=== PATIENT | female | born 1995 | race Caucasian/White ===

== ENCOUNTER 2020-05-17 12:24 | Observation (INO) ==
[2020-05-16 15:09] LABS: Basophils % 0.4 %; Eosinophils % 0.3 %; Hematocrit 33.6 % (35.3-44.9); Hemoglobin 10.9 g/dL (11.5-15.4); Immature Granulocytes % 1.1 % (0-4); Lymphocytes # 1.6 K/mcL (0.6-4.6); Lymphocytes % 16.8 %; Mean Corpuscular HGB Conc 32.4 g/dL (31.6-35.5); Mean Corpuscular Hemoglobin 29.1 pg (28.0-33.3); Mean Corpuscular Volume 89.6 fL (83.0-100.0); Mean Platelet Volume 10.3 fL (9.4-12.4); Monocytes # 0.6 K/mcL (0.0-1.3); Monocytes % 5.8 %; Neutrophils # 7.2 K/mcL (1.6-8.9); Platelet Count 267 K/mcL (140-400); Red Blood Count 3.75 M/mcL (3.82-4.97); Red Cell Distribution Width 13.8 % (11.5-14.5); Segmented Neutrophils % 75.6 %; White Blood Count 9.5 K/mcL (4.3-11.1)
[2020-05-16 15:16] LABS: Bacteria,Urine Few per hpf (None-Few); Bilirubin,Urine Negative (Negative); Blood,Urine Negative (Negative); Clarity,Urine Turbid (Clear); Color,Urine Yellow (Yellow); Glucose,Urine (UA) Normal (Normal); Ketones,Urine Negative (Negative); Leukocyte Esterase,Urine Large (Negative); Mucus,Urine Few per lpf (None-Few); Nitrite,Urine Negative (Negative); Protein,Urine 30 mg/dL (Neg-Trace); Specific Gravity,Urine 1.016 (1.010-1.025); Squamous Epithelial Cell,Urine Many per hpf (None-Few); Urobilinogen,Urine Normal (Normal); WBC,Urine 15-30 per hpf (0-3)
[2020-05-16 15:39] LABS: Alanine Aminotransferase 26 Units/L (7-52); Albumin 3.2 g/dL (3.5-5.7); Alkaline Phosphatase 106 Units/L (34-104); Aspartate Amino Transferase 21 Units/L (13-39); BUN/Creatinine Ratio 9 (6-26); Bilirubin,Indirect 0.3 mg/dL (0.0-1.0); Bilirubin,Total 0.3 mg/dL (0.3-1.0); Blood Urea Nitrogen 5 mg/dL (6-20); Calcium 8.5 mg/dL (8.6-10.3); Carbon Dioxide 19 mEq/L (23-29); Chloride 105 mEq/L (98-107); Globulin 3.1 g/dL (2.4-3.5); Glucose 80 mg/dL (70-105); Osmolality,Calculated 274 (280-300); Potassium 3.9 mEq/L (3.5-5.1); Sodium 134 mEq/L (136-145); Total Protein 6.3 g/dL (6.4-8.9); eGFR For African Americans > 60 (> 60); eGFR For Non-African Americans > 60 (> 60)
[~2020-05-17 12:24] MED LIST: Acetaminophen 325 MG TABLET PO ONE; Acetaminophen/Butalbital/CaffeineTABLET PO PRN; Magnesium Oxide 400 MG TABLET PO STA; Ringers Solution, Lactated 1,000 ML IVC SCH
[2020-05-17 15:42] LABS: Basophils % 0.2 %; Eosinophils % 0.2 %; Hematocrit 33.4 % (35.3-44.9); Hemoglobin 10.8 g/dL (11.5-15.4); Immature Granulocytes % 1.1 % (0-4); Lymphocytes # 1.4 K/mcL (0.6-4.6); Lymphocytes % 17.1 %; Mean Corpuscular HGB Conc 32.3 g/dL (31.6-35.5); Mean Corpuscular Hemoglobin 29.8 pg (28.0-33.3); Mean Corpuscular Volume 92.3 fL (83.0-100.0); Mean Platelet Volume 10.2 fL (9.4-12.4); Monocytes # 0.3 K/mcL (0.0-1.3); Monocytes % 3.1 %; Neutrophils # 6.4 K/mcL (1.6-8.9); Platelet Count 256 K/mcL (140-400); Red Blood Count 3.62 M/mcL (3.82-4.97); Red Cell Distribution Width 13.9 % (11.5-14.5); Segmented Neutrophils % 78.3 %; White Blood Count 8.2 K/mcL (4.3-11.1)
[2020-05-17 15:49] LABS: Bacteria,Urine Few per hpf (None-Few); Bilirubin,Urine Negative (Negative); Blood,Urine Negative (Negative); Clarity,Urine Turbid (Clear); Color,Urine Colorless (Yellow); Glucose,Urine (UA) Normal (Normal); Ketones,Urine Negative (Negative); Leukocyte Esterase,Urine Small (Negative); Mucus,Urine Few per lpf (None-Few); Nitrite,Urine Negative (Negative); Protein,Urine Negative (Neg-Trace); RBC,Urine 0-3 per hpf (0-3); Specific Gravity,Urine 1.009 (1.010-1.025); Squamous Epithelial Cell,Urine Few per hpf (None-Few); Urobilinogen,Urine Normal (Normal)
[2020-05-17 15:51] LABS: Protein/Creatinine Ratio,Urine 0.21 mg/mg (0.00-0.20)
[2020-05-17 16:01] LABS: Alanine Aminotransferase 25 Units/L (7-52); Aspartate Amino Transferase 18 Units/L (13-39); BUN/Creatinine Ratio 10 (6-26); Blood Urea Nitrogen 7 mg/dL (6-20); Lactate Dehydrogenase 107 Units/L (140-271); Uric Acid 3.6 mg/dL (2.3-7.6); eGFR For African Americans > 60 (> 60); eGFR For Non-African Americans > 60 (> 60)
== END 2020-05-17 17:05 | disposition left against medical advice (07) ==
LOC: 1NENULAB
PROVIDERS: ADMIT Obstetrics & Gynecology; ATTEND Obstetrics & Gynecology